=== PATIENT | male | born 2000 | race African-American/Black ===

== ENCOUNTER 2024-07-21 20:39 | Emergency (ER) | payer SELFPAY ==
[2024-07-21 20:57] VITALS: BP 148/95; PULSE 85; RESP 16; TEMP 36.8; O2SAT 100; BMI 20.5
--- NOTE | 2024-07-21 22:20 | ED_ITS ---
HPI - Dental/Oral General Chief complaint: Dental/Oral Stated complaint: tooth infection on right side Time Seen by Provider: 07/21/24 22:11 Source: patient Mode of arrival: ambulatory Limitations: no limitations History of Present Illness ED Provider: JOSÉ MIGUEL SOSA Narrative: 23 yo male with PMH of poor dental care has no insurance or dentist. He notes 3 days of jaw pain, dental pain and he has pain in R ear because of it. No fevers reported. He is taking tylenol. He denies difficulty swallowing. MD Complaint: tooth pain Location: Tooth # (31, 29) Onset (ago): day(s) (3) Duration: constant Severity: moderate Relieving factors: other Exacerbating factors: chewing, cold and heat Context: history of dental caries Associated symptoms: gum swelling Treatment prior to arrival: other Related Data Previous Rx's ?Medication ?Instructions ?Recorded amoxicillin 500 mg tablet 500 mg PO TID 7 days #21 tabs 07/21/24 ibuprofen 600 mg tablet 600 mg PO Q6H PRN pain #30 tabs 07/21/24 Allergies Allergy/AdvReac Type Severity Reaction Status Date / Time No Known Allergies Allergy Verified 07/21/24 20:58 Review of Systems Review of Systems: Constitutional : No Fever, No Chills ENT/Mouth : No swallowing difficulty, no change in voice, positive dental pain, positive jaw pain, no facial swelling Eyes: No Eye Pain, No Swelling Cardiovascular : No Chest Pain, No SOB Respiratory : No Cough, No Sputum Gastrointestinal : No Nausea, No Vomiting, No Diarrhea Genitourinary : No Dysuria Musculoskeletal : No Myalgias Skin : No rash Neuro : No Weakness, No Numbness, No Headache all other systems reviewed and are negative [facility] Past Medical History Attestation statement: The following information was validated with the patient. Medical History Dental caries Social History Social History (Updated 07/21/24 @ 22:25 by Candelaria Chase DO) Patient Tobacco Use Status: Never used Tobacco Physical Exam Vital Signs: Vital Signs: Last Vital Signs Temp 98.3 F 07/21/24 20:57 Pulse 85 07/21/24 20:57 Resp 16 07/21/24 20:57 BP 148/95 H 07/21/24 20:57 Pulse Ox 100 07/21/24 20:57 O2 Del Method Room Air 07/21/24 20:57 BMI result Body Mass Index 20.5 Appearance: Alert. Oriented X3. No acute distress. Eyes: Pupils equal, round and reactive to light. ENT: Pharynx normal. no trismus no sublingual or submandibular swelling, R lower molar x 2 poor cavities and dentition mild gum erythema but no fluctuance or abscess, neck and preauricular area is normal Neck: Normal inspection. Neck supple. CVS:Pulses normal. Respiratory: No respiratory distress. Abdomen: atraumatic Skin: Skin warm and dry. Normal skin color. Extremities: No lower extremity edema. Neuro: Oriented X 3. No motor deficit. No sensory deficit. CN2-12 intact Medical Decision Making Medical Decision Making MDM Narrative: 23 yo male with PMH of poor dental care now here with toothache and feels he is infected at this time no ext swelling or sublingual or submandibular swelling, no trismus no facial cellulitis - will start on amoxicillin and refer to dentist. He states he can fill out [employer] application on his own and does not need help. He plans to do that and follow up with dentist. No signs of deeper space infection on exam Differential Diagnosis Differential Diagnoses: The differential diagnosis associated with the presentation includes toothache, dental infection, tooth fracture/decay Prescription Management I considered prescription management with: Antibiotic Discharge Plan Discharge Clinical Impression: Toothache, Dental caries Patient Disposition: Home, Self-Care Instructions: Toothache (ED) Additional Instructions: please call around and try to find a dentist there is one across the street from the hospital return for worsening pain, fevers, increased facial swelling or any other concerns On amoxicillin softer bowel movements are to be expected. Call your provider if you move your bowels more than 4 times a day, your bowel movements are almost all liquid, or you get a rash.? Prescriptions: New ibuprofen 600 mg tablet 600 mg PO Q6H PRN (Reason: pain) Qty: 30 0RF amoxicillin 500 mg tablet 500 mg PO TID 7 Days Qty: 21 0RF Stand Alone Forms: Work/School Release Print Language: Tristanian
[2024-07-21] MEDS: Amoxicillin 500 MG CAPSULE PO (22:28)
[2024-07-21 22:30] VITALS: BP 148/95; PULSE 85; RESP 16; TEMP 36.8; O2SAT 100
== END 2024-07-21 22:32 | disposition home or self-care (01) ==
PROVIDERS: Emergency Provider Emergency Medicine
DX: K02.9 Dental caries, unspecified (principal); R68.84 Jaw pain; H92.01 Otalgia, right ear
CPT/HCPCS: 99282; 99283